=== PATIENT | male | born 1975 | race Caucasian/White ===

== ENCOUNTER → 2024-02-29 13:59 | Outpatient (BNVA) | payer MEDICARE, SELFPAY | PROVIDERS: Family Provider Electrodiagnostic Medicine; PCP Family Medicine Adult Medicine; Visit Provider Student in an Organized Health Care Education/Training Program | DX: S46.002A Unspecified injury of muscle(s) and tendon(s) of the rotator cuff of left shoulder, initial encounter; M19.012 Primary osteoarthritis, left shoulder; M75.42 Impingement syndrome of left shoulder; M75.41 Impingement syndrome of right shoulder; X58.XXXA Exposure to other specified factors, initial encounter | CPT/HCPCS: 20610; 73030; 99204; J3301 ==

== ENCOUNTER → 2024-04-09 13:44 | Outpatient (BNVA) | payer MEDICARE, SELFPAY | PROVIDERS: Family Provider Electrodiagnostic Medicine; PCP Family Medicine Adult Medicine; Visit Provider Student in an Organized Health Care Education/Training Program | DX: M25.561 Pain in right knee (principal) | CPT/HCPCS: 73560; 73565 ==

== ENCOUNTER → 2024-04-25 14:08 | Outpatient (BNVA) | payer MEDICARE, SELFPAY | PROVIDERS: Family Provider Electrodiagnostic Medicine; PCP Family Medicine Adult Medicine; Visit Provider Family Medicine | DX: Z79.899 Other long term (current) drug therapy (principal); F31.62 Bipolar disorder, current episode mixed, moderate; I10 Essential (primary) hypertension; E11.69 Type 2 diabetes mellitus with other specified complication; E66.9 Obesity, unspecified; E29.1 Testicular hypofunction; K21.9 Gastro-esophageal reflux disease without esophagitis; N52.03 Combined arterial insufficiency and corporo-venous occlusive erectile dysfunction | CPT/HCPCS: 80053; 80061; 80178; 82043; 82607; 83036; 84403; 84443; 85025 ==

== ENCOUNTER 2024-06-18 13:57 | Outpatient (CLI) | payer MEDICARE, SELFPAY ==
--- NOTE | 2024-06-18 14:03 | MR_ITS ---
WS: [id number] MRI RIGHT KNEE HISTORY: right knee pain,meniscal injury COMPARISON: Radiographs 04/09/2024 Anterior cruciate ligament: Poor differentiation of the fibers of the ACL. Several the fibers are kalyan ntified and normal orientation. There is fluid in the central ACL. Partial tear is likely but majorit y of changes are chronic and due to mucoid degeneration. Posterior cruciate ligament: Intact. Medial collateral ligament: Intact. Posterior lateral corner structures: Intact. Medial menisci: Horizontal tear posterior horn extends to the inferior articular surface. There is al so blunting of the free edge and a small caliber meniscal root with increased signal. Anterior horn i s normal. Lateral meniscus: Intact. Normal signal, size and shape. Extensor mechanism: Distal quadriceps tendon and patellar tendons are intact. Fluid and soft tissue: Small suprapatellar joint effusion. Small Barron's cyst. Osseous and articular structures: Patellofemoral compartment: Mild thinning of the cartilage over the patella. No marrow edema. Medial compartment: Moderate narrowing of the medial compartment. Moderate chondromalacia along the t ibial plateau and femoral condyle. No marrow edema. Lateral compartment: Well preserved. MR/MR knee RT wo con* [id number] IMPRESSION: 1. Horizontal tear posterior horn medial meniscus with extension to the free e dge and the meniscal root. 2. Small suprapatellar joint effusion. 3. Small Barron's cyst. 4. Mucoid degeneration within the ACL. There is fluid in the central ACL. Susp ect there is probably a small tear. 5. Moderate narrowing medial compartment with chondromalacia. 6. Mild chondromalacia patella.
== END 2024-06-18 13:58 | disposition home or self-care (01) ==
LOC: RAD 14:01
PROVIDERS: Family Provider Electrodiagnostic Medicine; PCP Family Medicine Adult Medicine; Visit Provider Student in an Organized Health Care Education/Training Program
DX: M23.221 Derangement of posterior horn of medial meniscus due to old tear or injury, right knee (principal); M71.21 Synovial cyst of popliteal space [Baker], right knee; M23.611 Other spontaneous disruption of anterior cruciate ligament of right knee; M17.11 Unilateral primary osteoarthritis, right knee; M94.261 Chondromalacia, right knee
CPT/HCPCS: 73721

== ENCOUNTER → 2024-06-25 08:47 | Outpatient (BNVA) | payer MEDICARE, SELFPAY | PROVIDERS: Family Provider Electrodiagnostic Medicine; PCP Family Medicine Adult Medicine; Visit Provider Student in an Organized Health Care Education/Training Program | DX: M25.561 Pain in right knee (principal); M23.306 Other meniscus derangements, unspecified meniscus, right knee; M94.261 Chondromalacia, right knee | CPT/HCPCS: 20610; 99213; J3301 ==

== ENCOUNTER → 2024-09-18 10:48 | Outpatient (BNVA) | payer MEDICARE, SELFPAY | PROVIDERS: Family Provider Electrodiagnostic Medicine; PCP Family Medicine; Visit Provider Student in an Organized Health Care Education/Training Program | DX: S43.432A Superior glenoid labrum lesion of left shoulder, initial encounter (principal); M75.42 Impingement syndrome of left shoulder; M19.012 Primary osteoarthritis, left shoulder; X58.XXXA Exposure to other specified factors, initial encounter | CPT/HCPCS: 99214 ==

== ENCOUNTER → 2024-10-29 13:20 | Outpatient (BNVA) | payer MEDICARE, SELFPAY | PROVIDERS: Family Provider Electrodiagnostic Medicine; PCP Family Medicine; Visit Provider Family Medicine | DX: E66.9 Obesity, unspecified (principal); E11.69 Type 2 diabetes mellitus with other specified complication; E29.1 Testicular hypofunction | CPT/HCPCS: 82040; 83036; 84270; 84403 ==

== ENCOUNTER 2024-11-12 14:41 | Outpatient (CLI) | payer MEDICARE, SELFPAY ==
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
== END 2024-11-12 14:42 | disposition home or self-care (01) ==
LOC: RAD 14:42
PROVIDERS: Family Provider Electrodiagnostic Medicine; PCP Family Medicine; Visit Provider Family Medicine
DX: M50.322 Other cervical disc degeneration at C5-C6 level (principal); G89.29 Other chronic pain; M46.04 Spinal enthesopathy, thoracic region; M41.83 Other forms of scoliosis, cervicothoracic region; M50.323 Other cervical disc degeneration at C6-C7 level; M50.33 Other cervical disc degeneration, cervicothoracic region; M41.84 Other forms of scoliosis, thoracic region; Z96.89 Presence of other specified functional implants; R93.7 Abnormal findings on diagnostic imaging of other parts of musculoskeletal system
CPT/HCPCS: 72040; 72072

== ENCOUNTER 2024-11-28 14:46 | Outpatient (RCR) | payer MEDICARE, SELFPAY | END 2024-12-11 23:59 | disposition home or self-care (01) | LOC: SPT 14:46 | PROVIDERS: Family Provider Electrodiagnostic Medicine; PCP Family Medicine; Visit Provider Family Medicine | DX: M54.2 Cervicalgia (principal) | CPT/HCPCS: 97161 ==

== ENCOUNTER → 2025-01-15 09:57 | Outpatient (BNVA) | payer MEDICARE, SELFPAY | PROVIDERS: Family Provider Electrodiagnostic Medicine; PCP Family Medicine; Visit Provider Student in an Organized Health Care Education/Training Program | DX: M94.261 Chondromalacia, right knee (principal); M23.306 Other meniscus derangements, unspecified meniscus, right knee | CPT/HCPCS: 20610; 99213; J3301; J9999 ==

== ENCOUNTER → 2025-05-15 09:24 | Outpatient (BNVA) | payer MEDICARE, SELFPAY | PROVIDERS: Family Provider Electrodiagnostic Medicine; PCP Family Medicine; Visit Provider Family Medicine | DX: E11.69 Type 2 diabetes mellitus with other specified complication (principal); E66.9 Obesity, unspecified; E29.1 Testicular hypofunction; I10 Essential (primary) hypertension; Z79.899 Other long term (current) drug therapy; K21.9 Gastro-esophageal reflux disease without esophagitis; G43.009 Migraine without aura, not intractable, without status migrainosus | CPT/HCPCS: 80053; 80061; 80178; 82043; 83036; 84439; 84443; 85025 ==

== ENCOUNTER → 2025-08-10 13:01 | Outpatient (BNVA) | payer MEDICARE, SELFPAY | PROVIDERS: Family Provider Electrodiagnostic Medicine; PCP Family Medicine; Visit Provider Nurse Practitioner Family | DX: R09.81 Nasal congestion (principal) | CPT/HCPCS: 87400; 87426 ==